=== PATIENT | male | born 1995 | race Caucasian/White ===

== ENCOUNTER 2017-12-09 18:44 | Emergency (ER) | payer OTHER ==
[2017-12-09 18:49] VITALS: BP 127/82; TEMP 98; BMI 33.0
[2017-12-09] MEDS ORDERED: ZOFRAN 4 MG/2 ML IM STA (19:14)
[2017-12-09] MEDS ORDERED: DEMEROL 50 MG/ML VIAL IM STA (19:14)
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
[2017-12-09] MEDS ORDERED: DILAUDID 2 MG/ML SYRINGE IVP STA (20:41)
== END 2017-12-09 21:36 | disposition home or self-care (01) ==
LOC: ED 18:44
DX: S12.600A Unspecified displaced fracture of seventh cervical vertebra, initial encounter for closed fracture (principal); S06.9X1A Unspecified intracranial injury with loss of consciousness of 30 minutes or less, initial encounter; M54.5 Low back pain; V87.8XXA Person injured in other specified noncollision transport accidents involving motor vehicle (traffic), initial encounter
CPT/HCPCS: 96372; 96374; 99283

== ENCOUNTER 2018-01-05 13:00 | Outpatient (RCR) ==
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
--- NOTE | 2017-12-31 14:24 | RS.OPPTDN ---
Subjective Date of Note: 12/31/17 Visit #: 2 Date of Evaluation: 12/30/17 Payer Source: Insurance Treatment Diagnosis: fracture of spinous process of cervical vertebra, acute bilateral LBP Current Subjective/complaints:: Patient says his back is not bothering him today. States R side of his neck and scapula is what is C/c. Pain mostly present with turning his neck to the R. States he picked up his child while leaning over. He said when he stood, he felt pain to the upper back, but it is much better now. He reports significant relief from pain by using modalities at [facility]. - Treatment Modality: Electrical Stim Unattended Parameters/Method Applied: IFC @ 14 ma x 20 mins to the R cervical paraspinals/ scapula Patient Position: Sitting - Heat/Cryotherapy Treatment: Cryotherapy Interventions - Exercise/Activities/Manual Therapy Exercises/Activities: Supine: cervical retraction into pillow x 5, isometric lateral flexion L and R x 5. LE: SKTC, HS, Piriformis, Fig 4, Lower trunk rotation all bilaterally x 3. Began patient education of diagnosis, exercises performed, MT, and postural techniques. Total minutes of Exercise: 19 Manual Therapy: occipital release and gentle PROM of cspine for rotation and SB only. Total minutes of Manual Therapy: 8 HOME EXERCISE PROGRAM: pt given written HEP including cervical isometrics, retraction, scapular retraction, corner stretch, lumbar single knee to chest, double knee to chest, hamstring stretch, pelvic tilt - Charges Timed Code Treatment Minutes: 27 Total Treatment Time: 47 Procedures billed for this date of service:: cp, estim (un), MT, EX Assessment: Patient presents with moderate pain to the neck and R scapula. He admits improved pain to 2/10 following treatment today and at eval yesterday. He has radiating symptoms to the R UE intermittently, which sometimes disturbs his sleep. He has difficulty steffany R cspine rotation especially if performed quickly. He steffany all MT and therex well today. R LE appears tighter than L with all stretching. Seun admits to being eager to return to work, but informs me that he must swing a large sledghammer repetitively and he is concerned if he is able to do this. Patient Education: Education of diagnosis, Body/Joint mechanics, Home Exercise Program, Education of Plan of Care Patient demonstrates compliance with HEP?: Yes Short Term Goals Goal #1: pt lumbar ROM WFL's , cervical flex WFL's Goal to be met by: 01/20/18 Progress towards Goal:: Progressing Goal #2: pt with no reports of radiating pain into LE's Goal to be met by: 01/20/18 Goal #3: pt report ability to sleep atleast 3-4 hours without interruption from pain Goal to be met by: 01/20/18 Goal #4: pt with no reports of numbness in L hand Goal to be met by: 01/20/18 Skilled Nursing Goals Goal #1: pt independent with HEP to maintain gains after DC Goal to be met by: 02/10/18 Goal #2: pt report ability to perform daily household activities with less pain Goal to be met by: 02/10/18 Goal #3: pt cervical/lumbar ROM WFL's with decreased pain. Goal to be met by: 02/10/18 Goal #4: pt with no reports of radicular symptoms in UE or LE Goal to be met by: 02/10/18 Plan PLAN OF CARE EXPIRES ON:: 02/10/18 ORDER # VISITS AND/OR THROUGH DATE: 02/10/18 PLAN: Continue for modalities and therex to the cspine to improve mobility and strength.
--- NOTE | 2018-01-02 14:50 | RS.OPPTDN ---
Subjective Date of Note: 01/02/18 Visit #: 3 Date of Evaluation: 12/30/17 Payer Source: Insurance Treatment Diagnosis: fracture of spinous process of cervical vertebra, acute bilateral LBP Current Subjective/complaints:: Patient reports pain and muscle tension is mainly in the bilateral medial scapular borders. Reports he bent over to hot die picker the family dog and had a sharp pain in the bilateral lumbar paraspinals. Reports little discomfort after treatment and exercise. Pain Assessment - Pain Description Pain Location: neck, thoracic and lumbar paraspinals Pain Description: Tightness Pain Description: soreness Current Pain Intensity: mild - Treatment Modality: Electrical Stim Unattended Parameters/Method Applied: [id number] HVGC to 180p.v. with 4 large pads to the base of the cervical paraspinals and thoracic paraspinals prior to MT and EX. Patient Position: Sitting Interventions - Exercise/Activities/Manual Therapy Exercises/Activities: In sitting, mid scap stretching with UE across midline. Manually resisted isometric cervical retraction and lateral flexion in neutral. Blue theraband for scap retraction. Standing alt hip ext. In supine, assisted HS and SKTC stretch. Pelvic tilts. Reveiwed body mechanics and safety lifting. Patient also given black theraband for progression of scap retraction. Total minutes of Exercise: 15mins Manual Therapy: Manual therapy of soft tissue massage and initiation of trigger point release along the bilateral cervical and thoracic paraspinals, upper traps , and mid scap musculature. Total minutes of Manual Therapy: 14mins HOME EXERCISE PROGRAM: pt given written HEP including cervical isometrics, retraction, scapular retraction, corner stretch, lumbar single knee to chest, double knee to chest, hamstring stretch, pelvic tilt - Charges Timed Code Treatment Minutes: 29mins Total Treatment Time: 52mins Procedures billed for this date of service:: Estim unattended, MT, EX Assessment: Patient reporting improvement in neck pain. Reports mid thoracic pain better following treatment and exercise. Patient Education: Education of diagnosis, Body/Joint mechanics, Home Exercise Program, Home Safety, Activity Modification Patient demonstrates compliance with HEP?: Yes Short Term Goals Goal #1: pt lumbar ROM WFL's , cervical flex WFL's Goal to be met by: 01/20/18 Progress towards Goal:: Progressing Goal #2: pt with no reports of radiating pain into LE's Goal to be met by: 01/20/18 Progress towards Goal:: Progressing Goal #3: pt report ability to sleep atleast 3-4 hours without interruption from pain Goal to be met by: 01/20/18 Progress towards Goal:: Progressing Goal #4: pt with no reports of numbness in L hand Goal to be met by: 01/20/18 Progress towards Goal:: Progressing Penitentiary Goals Goal #1: pt independent with HEP to maintain gains after DC Goal to be met by: 02/10/18 Goal #2: pt report ability to perform daily household activities with less pain Goal to be met by: 02/10/18 Goal #3: pt cervical/lumbar ROM WFL's with decreased pain. Goal to be met by: 02/10/18 Goal #4: pt with no reports of radicular symptoms in UE or LE Goal to be met by: 02/10/18 Plan PLAN OF CARE EXPIRES ON:: 02/10/18 ORDER # VISITS AND/OR THROUGH DATE: 02/10/18 PLAN: Progress with strengthening exercise to prepare patient for return to work.
--- NOTE | 2018-01-05 15:38 | RS.OPPTDN ---
Subjective Date of Note: 01/05/18 Visit #: 4 Date of Evaluation: 12/30/17 Payer Source: Insurance Treatment Diagnosis: fracture of spinous process of cervical vertebra, acute bilateral LBP Current Subjective/complaints:: Patient reports he is feeling much better. Reports neck and upper back soreness, but nothing he would describe as pain. Reports sleeping better and no numbness in left hand. Pain Assessment - Pain Description Pain Location: neck, upper back, and lowback. Pain Description: Tightness Pain Description: soreness Current Pain Intensity: mild - Treatment Modality: Electrical Stim Unattended Parameters/Method Applied: [id number] HVGC to the bilateral mid thoracic paraspinals to the base of the cervical spine. Patient Position: Sitting Interventions - Exercise/Activities/Manual Therapy Exercises/Activities: In sitting, mid scap stretching with UE across midline. Assisted stretching into lateral flexion. Manually resisted isometric cervical retraction and lateral flexion in neutral. Black theraband for scap retraction and bilateral shoulder extension. Added blue theraband to standing alt hip ext. Reveiwed body mechanics. Total minutes of Exercise: 10mins Manual Therapy: Manual therapy of soft tissue massage and initiation of trigger point release along the bilateral cervical and thoracic paraspinals, upper traps , and mid scap musculature. Total minutes of Manual Therapy: 22mins HOME EXERCISE PROGRAM: pt given written HEP including cervical isometrics, retraction, scapular retraction, corner stretch, lumbar single knee to chest, double knee to chest, hamstring stretch, pelvic tilt - Charges Timed Code Treatment Minutes: 32mins Total Treatment Time: 52mins Procedures billed for this date of service:: Estim unatteded, MT, EX Assessment: Patient reports good progress with reduction in pain. Appears to be working on HEP. Patient Education: Education of diagnosis, Body/Joint mechanics, Home Exercise Program, Home Safety, Activity Modification Patient demonstrates compliance with HEP?: Yes Short Term Goals Goal #1: pt lumbar ROM WFL's , cervical flex WFL's Goal to be met by: 01/20/18 Progress towards Goal:: Partially Met Goal #2: pt with no reports of radiating pain into LE's Goal to be met by: 01/20/18 Progress towards Goal:: Partially Met Goal #3: pt report ability to sleep atleast 3-4 hours without interruption from pain Goal to be met by: 01/20/18 Progress towards Goal:: Met Goal #4: pt with no reports of numbness in L hand Goal to be met by: 01/20/18 Progress towards Goal:: Met Shoe Polisher Goals Goal #1: pt independent with HEP to maintain gains after DC Goal to be met by: 02/10/18 Progress towards goal: Partially Met Goal #2: pt report ability to perform daily household activities with less pain Goal to be met by: 02/10/18 Progress towards goal: Partially Met Goal #3: pt cervical/lumbar ROM WFL's with decreased pain. Goal to be met by: 02/10/18 Progress towards goal: Partially Met Goal #4: pt with no reports of radicular symptoms in UE or LE Goal to be met by: 02/10/18 Progress towards goal: Partially Met Plan PLAN OF CARE EXPIRES ON:: 02/10/18 ORDER # VISITS AND/OR THROUGH DATE: 02/10/18 PLAN: Progress with postural exercise to reduce pain and return patient to PLOF.
== END 2018-01-06 23:59 ==
PROVIDERS: ATTEND Nurse Practitioner
DX: S12.9XXD Fracture of neck, unspecified, subsequent encounter (principal); M54.2 Cervicalgia; M54.40 Lumbago with sciatica, unspecified side

== ENCOUNTER 2018-01-20 13:00 | Outpatient (RCR) ==
--- NOTE | 2018-01-09 14:19 | RS.OPPTDN ---
Subjective Date of Note: 01/09/18 Visit #: 5 Date of Evaluation: 12/30/17 Payer Source: Insurance Treatment Diagnosis: fracture of spinous process of cervical vertebra, acute bilateral LBP Current Subjective/complaints:: Patient reports soreness ,mostly on the R side of his neck and R scapula,but no sharp pain. Pain Assessment - Pain Description Pain Location: R cervical /scapula Pain Description: Dull Pain Description: soreness Current Pain Intensity: 0 - Treatment Modality: Electrical Stim Unattended Parameters/Method Applied: 20 mins. ,2 large electrodes to R upper trap/R upper thoracic level,@ 180 pv. Patient Position: Sitting Interventions - Exercise/Activities/Manual Therapy Exercises/Activities: Cervical rotation to L and R ,extension ,standing postural pullbacks on multi-gym at 3 different levels with 10 # resistance, progressed to 20 #,3/10 reps. each.HEP review. Total minutes of Exercise: 25 Manual Therapy: Manual therapy of soft tissue massage and initiation of trigger point release along the bilateral cervical and thoracic paraspinals, upper traps , and mid scap musculature. Total minutes of Manual Therapy: 0 HOME EXERCISE PROGRAM: pt given written HEP including cervical isometrics, retraction, scapular retraction, corner stretch, lumbar single knee to chest, double knee to chest, hamstring stretch, pelvic tilt - Charges Timed Code Treatment Minutes: 45 Total Treatment Time: 45 Procedures billed for this date of service:: e-stim,ex 2 Assessment: Patient tolerates multigym exercises with out eliciting pain .He has stretch discomfort with cervical rotation to the R ,but no sharp pain.He is attentive and motivated to improve ,desires to return to work when feasible. Patient Education: Education of diagnosis, Body/Joint mechanics, Home Exercise Program, Home Safety, Activity Modification, Education of Plan of Care Patient demonstrates compliance with HEP?: Yes Short Term Goals Goal #1: pt lumbar ROM WFL's , cervical flex WFL's Goal to be met by: 01/20/18 Progress towards Goal:: Partially Met Goal #2: pt with no reports of radiating pain into LE's Goal to be met by: 01/20/18 Progress towards Goal:: Partially Met Goal #3: pt report ability to sleep atleast 3-4 hours without interruption from pain Goal to be met by: 01/20/18 Progress towards Goal:: Met Goal #4: pt with no reports of numbness in L hand Goal to be met by: 01/20/18 Progress towards Goal:: Met Chemical Instrumentation Officer Goals Goal #1: pt independent with HEP to maintain gains after DC Goal to be met by: 02/10/18 Progress towards goal: Partially Met Goal #2: pt report ability to perform daily household activities with less pain Goal to be met by: 02/10/18 Progress towards goal: Partially Met Goal #3: pt cervical/lumbar ROM WFL's with decreased pain. Goal to be met by: 02/10/18 Progress towards goal: Partially Met Goal #4: pt with no reports of radicular symptoms in UE or LE Goal to be met by: 02/10/18 Progress towards goal: Partially Met Plan PLAN OF CARE EXPIRES ON:: 02/10/18 ORDER # VISITS AND/OR THROUGH DATE: 02/10/18 PLAN: Continue PT to eliminate cervical pain ,return to PLOF.
--- NOTE | 2018-01-13 14:25 | RS.OPPTDN ---
Subjective Date of Note: 01/13/18 Visit #: 6 Date of Evaluation: 12/30/17 Payer Source: Insurance Treatment Diagnosis: fracture of spinous process of cervical vertebra, acute bilateral LBP Current Subjective/complaints:: Reports increased muscle soreness in the lower C _spine today,but no sharp pain present. Pain Assessment - Pain Description Pain Location: cervical/scapular area Pain Description: muscle soreness - Treatment Modality: Electrical Stim Unattended Parameters/Method Applied: 20 mins. high volt,along the upper medial border of the scapulae,2 large electrodes @ 165 pv. Patient Position: Sitting - Heat/Cryotherapy Treatment: Cryotherapy (concurrent with e-stim) Interventions - Exercise/Activities/Manual Therapy Exercises/Activities: Cervical rotation to L and R ,extension ,standing postural pullbacks on multi-gym at 3 different levels with 30 # resistance, added forward punching motion for scapular protraction with 30 # also.HEP review of stretches including chin tucks,corner or doorway stretches. Total minutes of Exercise: 35 Manual Therapy: NA Total minutes of Manual Therapy: 0 HOME EXERCISE PROGRAM: pt given written HEP including cervical isometrics, retraction, scapular retraction, corner stretch, lumbar single knee to chest, double knee to chest, hamstring stretch, pelvic tilt - Charges Timed Code Treatment Minutes: 55 Total Treatment Time: 55 Procedures billed for this date of service:: cp,e-stim,ex 2 Assessment: Tolerates exercises well,reports fatigue and dull ache as the reps. continue ,but no sharp pain or report of crepitus present.He has good understanding of HEP and safety precautions. Patient Education: Education of diagnosis, Body/Joint mechanics, Home Exercise Program, Home Safety, Activity Modification, Education of Plan of Care Patient demonstrates compliance with HEP?: Yes Short Term Goals Goal #1: pt lumbar ROM WFL's , cervical flex WFL's Goal to be met by: 01/20/18 Progress towards Goal:: Partially Met Goal #2: pt with no reports of radiating pain into LE's Goal to be met by: 01/20/18 Progress towards Goal:: Partially Met Goal #3: pt report ability to sleep atleast 3-4 hours without interruption from pain Goal to be met by: 01/20/18 Progress towards Goal:: Met Goal #4: pt with no reports of numbness in L hand Goal to be met by: 01/20/18 Progress towards Goal:: Met Patient Attendant Goals Goal #1: pt independent with HEP to maintain gains after DC Goal to be met by: 02/10/18 Progress towards goal: Partially Met Goal #2: pt report ability to perform daily household activities with less pain Goal to be met by: 02/10/18 Progress towards goal: Partially Met Goal #3: pt cervical/lumbar ROM WFL's with decreased pain. Goal to be met by: 02/10/18 Progress towards goal: Partially Met Goal #4: pt with no reports of radicular symptoms in UE or LE Goal to be met by: 02/10/18 Progress towards goal: Partially Met Plan PLAN OF CARE EXPIRES ON:: 02/10/18 ORDER # VISITS AND/OR THROUGH DATE: 02/10/18 PLAN: Continue PT to return to PLOF,normal cervical motion without pain.
--- NOTE | 2018-01-15 14:02 | RS.OPPTDN ---
Subjective Date of Note: 01/15/18 Visit #: 7 Date of Evaluation: 12/30/17 Payer Source: Insurance Treatment Diagnosis: fracture of spinous process of cervical vertebra, acute bilateral LBP Current Subjective/complaints:: Reports he tolerated laast PT sesion ,but increased muscle soreness the past couple of days.He also reports tightness when turning his head to L or R ,but no sharp pain. Pain Assessment - Pain Description Pain Location: cervical /shoulders Pain Description: Tightness Pain Description: soreness Current Pain Intensity: 2-3 - Treatment Modality: Electrical Stim Unattended Parameters/Method Applied: 20 mins. high volt,channel 1 to upper traps @ 180 pv, channel 2 to medial borders of each scapula @ 170 pv. Patient Position: Sitting - Heat/Cryotherapy Treatment: Cryotherapy (comcurrent with e-stim to neck and shoulders) Interventions - Exercise/Activities/Manual Therapy Exercises/Activities: HEP review only while receiving manual therapy . Total minutes of Exercise: 0 Manual Therapy: 20 mins. soft tissue mobilization to upper traps area/scapular region. Total minutes of Manual Therapy: 20 HOME EXERCISE PROGRAM: pt given written HEP including cervical isometrics, retraction, scapular retraction, corner stretch, lumbar single knee to chest, double knee to chest, hamstring stretch, pelvic tilt - Charges Timed Code Treatment Minutes: 40 Total Treatment Time: 40 Procedures billed for this date of service:: cp,e-stim ,manual therapy Assessment: Patient tolerates the manual therapy well,does report more tenderness on the L side of the spine today,mild trigger points along the medail bortder of the scapula.He is compliant to HEP,reports sleeping better. Patient Education: Education of diagnosis, Body/Joint mechanics, Home Exercise Program, Home Safety, Activity Modification, Education of Plan of Care Patient demonstrates compliance with HEP?: Yes Short Term Goals Goal #1: pt lumbar ROM WFL's , cervical flex WFL's Goal to be met by: 01/20/18 Progress towards Goal:: Partially Met Goal #2: pt with no reports of radiating pain into LE's Goal to be met by: 01/20/18 Progress towards Goal:: Met Goal #3: pt report ability to sleep atleast 3-4 hours without interruption from pain Goal to be met by: 01/20/18 Progress towards Goal:: Met Goal #4: pt with no reports of numbness in L hand Goal to be met by: 01/20/18 Progress towards Goal:: Met Reel Repairer Goals Goal #1: pt independent with HEP to maintain gains after DC Goal to be met by: 02/10/18 Progress towards goal: Partially Met Goal #2: pt report ability to perform daily household activities with less pain Goal to be met by: 02/10/18 Progress towards goal: Partially Met Goal #3: pt cervical/lumbar ROM WFL's with decreased pain. Goal to be met by: 02/10/18 Progress towards goal: Partially Met Goal #4: pt with no reports of radicular symptoms in UE or LE Goal to be met by: 02/10/18 Progress towards goal: Partially Met Plan PLAN OF CARE EXPIRES ON:: 02/10/18 ORDER # VISITS AND/OR THROUGH DATE: 02/10/18 PLAN: Continue PT for patient to return to pain free motion in the cervical spine.
--- NOTE | 2018-01-20 14:09 | RS.OPPTDN ---
Subjective Date of Note: 01/20/18 Visit #: 8 Date of Evaluation: 12/30/17 Payer Source: Insurance Treatment Diagnosis: fracture of spinous process of cervical vertebra, acute bilateral LBP Current Subjective/complaints:: Patient reports muscle soreness only ,no pain in cervical region.He reports having an appt. tomorrow at Dr. Echeverria's office. Pain Assessment - Pain Description Pain Location: no pain today Pain Description: muscle sorenessonly Current Pain Intensity: 0 Interventions - Exercise/Activities/Manual Therapy Exercises/Activities: 35 mins.total of core strengthening /shoulder/cervical exercises doing postural pullbacks and scapular pro/retraction with 40 # ,3/15 reps. on multi-gym .Treadmill x 10 mis. supervised on 15 % incline @ 1.5 mph.HEP review for ROM in pain free ROM. Total minutes of Exercise: 35 Manual Therapy: NA Total minutes of Manual Therapy: 0 HOME EXERCISE PROGRAM: pt given written HEP including cervical isometrics, retraction, scapular retraction, corner stretch, lumbar single knee to chest, double knee to chest, hamstring stretch, pelvic tilt - Charges Timed Code Treatment Minutes: 35 Total Treatment Time: 35 Procedures billed for this date of service:: ex 2 Assessment: Patient reports muscle soreness only.He has no radiculopathy in UE/ LE's.His cervical motion is functional.He has improved sleep quality.He has good understanding of HEP. Patient Education: Education of diagnosis, Body/Joint mechanics, Home Exercise Program, Home Safety, Activity Modification, Education of Plan of Care Patient demonstrates compliance with HEP?: Yes Short Term Goals Goal #1: pt lumbar ROM WFL's , cervical flex WFL's Goal to be met by: 01/20/18 Progress towards Goal:: Met Goal #2: pt with no reports of radiating pain into LE's Goal to be met by: 01/20/18 Progress towards Goal:: Met Goal #3: pt report ability to sleep atleast 3-4 hours without interruption from pain Goal to be met by: 01/20/18 Progress towards Goal:: Met Goal #4: pt with no reports of numbness in L hand Goal to be met by: 01/20/18 Progress towards Goal:: Met Software Business Analyst Goals Goal #1: pt independent with HEP to maintain gains after DC Goal to be met by: 02/10/18 Progress towards goal: Partially Met Goal #2: pt report ability to perform daily household activities with less pain Goal to be met by: 02/10/18 Progress towards goal: Partially Met Goal #3: pt cervical/lumbar ROM WFL's with decreased pain. Goal to be met by: 02/10/18 Progress towards goal: Met Goal #4: pt with no reports of radicular symptoms in UE or LE Goal to be met by: 02/10/18 Progress towards goal: Met Plan PLAN OF CARE EXPIRES ON:: 02/10/18 ORDER # VISITS AND/OR THROUGH DATE: 02/10/18 PLAN: Tentative D/C plan based upon assessment by Dr. Echeverria tomorrow.
--- NOTE | 2018-01-22 13:08 | RS.QUICKDC ---
Discharge from PT Date of Discharge: 01/22/18 Number of Visits: 8 Reason for Discharge: Patient had follow-up yesterday with Ortho. Beatty He is released to return to work.
== END 2018-02-06 23:59 ==
PROVIDERS: ATTEND Nurse Practitioner
DX: S12.9XXD Fracture of neck, unspecified, subsequent encounter (principal); M54.2 Cervicalgia; M54.40 Lumbago with sciatica, unspecified side; M62.89 Other specified disorders of muscle